=== PATIENT | male | born 1965 | race Caucasian/White ===

== ENCOUNTER 2016-05-26 22:34 | Emergency (ER) | payer OTHER ==
[~2016-05-26 22:34] MED LIST: ADDERALL 10 MG10 M2 PO; ALBUTEROL SULF8.5 G1 IH; ALBUTEROL SULF8.5 G2 IH; ALBUTEROL17 GM INH; ALBUTEROL2.5 MG/0.1 IH; ALPRAZOLAM1 M2 PO; AMBIEN10 M1 PO; AMBIEN10 MG PO; AMBIEN5 MG PO; ASPIR 8181 MG; ASPIRIN325 M3 PO; ASPIRIN325 MG PO; ATORVASTATIN CA20 M1 PO; AZITHROMYCIN250 M1 PO; BACTRIM DS TAB1 EAC2 PO; BACTRIM1 TAB PO; BAYER81 MG PO; BUSPIRONE HCL15 M1 PO; CELEBREX200 M1 PO; CIPRO500 MG PO; DICLOFENAC POTA50 M1 PO; DOXYCYCLINE HY100 M3 PO; FLOMAX0.4 MG PO; GUIATUSS AC SY120 ML PO; HYDROCODON-ACE1 EA17 PO; INHALER; LAMICTAL25 M2 PO; LASIX20 M1 PO; LEVAQUIN500 MG PO; LIPITOR10 MG PO; LIPITOR20 M1 PO; LIPITOR40 MG PO; LOPRESSOR50 M1 PO; MELOXICAM15 M1 PO; METFORMIN HCL500 M2 PO; NEURONTIN400 M1 PO; NORCO 5-325 TA1 EACH PO; NORCO 5/325 TAB1 TAB PO; NORCO 5/3251 TAB PO; NUPRIN200 M PO; OMEPRAZOLE40 M2 PO; OMEPRAZOLE40 MG PO; PERCOCET 5-3251 EACH PO; PERCOCET 5MG/AP1 TA1 PO; PHENERGAN12.5 MG/TA PO; POTASSIUM CHLO20 ME3 PO; PRAVACHOL20 MG PO; PREDNISONE20 M1 PO; PREDNISONE20 MG PO; PRILOSEC40 MG PO; PROTONIX20 M1 PO; PROTONIX20 MG PO; RANITIDINE HCL300 M1 PO; SENNA PLUS TAB1 EACH PO; SENOKOT-S TABL1 EACH PO; SERTRALINE HCL50 M1 PO; SKELAXIN800 MG PO; SLEEP MED; TEMAZEPAM15 MG PO; TESSALON200 MG PO; TOPROL XL25 MG; TOPROL XL50 MG PO; ULTRAM50 M1 PO; VALIUM10 M1 PO; VALIUM5 M1 PO; VIBRAMYCIN100 M1 PO; VICODIN 5/500 T1 TAB PO; XANAX1 M1 PO; XARELTO10 M1 PO; XARELTO10 MG PO; ZANTAC300 M1 PO; ZITHROMAX250MG Z-PAK PO
[2016-05-26] MEDS ORDERED: ZOLOFT50 M1 PO (22:46)
[2016-05-27] MEDS ORDERED: DICLOFENAC SODI75 M2 PO (00:56)
[2016-05-27] MEDS ORDERED: CYCLOBENZAPRINE10 M1 PO (00:56)
[2016-05-27] MEDS ORDERED: NORCO 5-325 TA1 EACH PO (00:56)
== END 2016-05-27 01:09 ==
LOC: EDMED 22:34
DX: S43.52XA Sprain of left acromioclavicular joint, initial encounter (principal); J45.909 Unspecified asthma, uncomplicated; X58.XXXA Exposure to other specified factors, initial encounter
CPT/HCPCS: J1885; J2360

== ENCOUNTER 2016-07-19 20:40 | Emergency (ER) | payer OTHER ==
[~2016-07-19 20:40] MED LIST changes: +CYCLOBENZAPRINE10 M1 PO; +DICLOFENAC SODI75 M2 PO; +ZOLOFT50 M1 PO
[2016-07-19] MEDS ORDERED: ERYTHROMYCIN1 GM OP (21:39)
[2016-07-19] MEDS ORDERED: KEFLEX500 M4 PO (21:39)
== END 2016-07-19 21:55 ==
LOC: EDMED 20:40
DX: H00.012 Hordeolum externum right lower eyelid (principal); E11.9 Type 2 diabetes mellitus without complications; I10 Essential (primary) hypertension; K21.9 Gastro-esophageal reflux disease without esophagitis